=== PATIENT | female | born 1950 | race Caucasian/White ===

== ENCOUNTER 2021-06-03 23:33 | Inpatient (IN) | payer MEDICARE, OTHER ==
[~2021-06-03] VITALS: Ht 162.6 cm; Wt 43.2 kg
--- NOTE | 2021-06-03 23:36 | NUR ---
pt bibra c/o sob x few days. Pt aaxo3 breathing evenly, but quickly. pt attached to monitor and pox. Upon assessment pt is incontinent bladder and bowel. Pt has gtube. Pt skin warm and dry. Pt given blanket and call light within reach
--- NOTE | 2021-06-03 23:55 | NUR ---
staci, daughter [phone]. Per daughter, pt has been confused for a week since she left [facility]. Roll Edge Machine Operator believes that it is caused by mismanagement of thyroid meds.
[2021-06-04 00:26] LABS: BASOPHILS # (AUTO) 0.1 K/uL (0.0-0.2); BASOPHILS % (AUTO) 0.8 % (0.0-2.0); EOSINOPHILS % (AUTO) 0.7 % (0.0-6.0); HEMATOCRIT 40 % (33-45); HEMOGLOBIN 12.6 g/dL (11.5-14.8); LYMPHOCYTES # (AUTO) 2.2 K/uL (0.8-4.8); LYMPHOCYTES % (AUTO) 18.4 % (20.0-44.0); MEAN CORPUSCULAR HGB CONC 31 g/dl (31.0-36.0); MEAN CORPUSCULAR VOLUME 91 fL (82-100); MONOCYTES # (AUTO) 1.1 K/uL (0.1-1.30); MONOCYTES % (AUTO) 9.4 % (2.0-12.0); NEUTROPHILS # (AUTO) 8.6 K/uL (1.8-8.9); NEUTROPHILS % (AUTO) 70.7 % (43.0-81.0); PLATELET COUNT (AUTO) 273 K/uL (150-450); RED BLOOD CELL COUNT(AUTO) 4.43 MIL/uL (4.0-5.2); WHITE BLOOD COUNT (AUTO) 12.1 K/uL (4.3-11.0)
[2021-06-04 01:05] LABS: ALANINE AMINOTRANSFERASE 29 U/L (12-78); ALBUMIN 3.1 g/dL (3.4-5.0); ALKALINE PHOSPHATASE 101 U/L (46-116); ASPARTATE AMINOTRANSFERASE 24 U/L (15-37); BILIRUBIN,DIRECT 0.4 mg/dL (0.0-0.2); BILIRUBIN,TOTAL 0.8 mg/dL (0.2-1.0); CALCIUM, SERUM 8.7 mg/dL (8.5-10.1); CARBON DIOXIDE 33 mmol/L (21-32); CHLORIDE 99 mmol/L (98-107); CREATININE 0.9 mg/dL (0.6-1.3); GLUCOSE 120 mg/dL (74-106); SODIUM SERUM 141 mmol/L (136-145); TOTAL PROTEIN, SERUM 7.6 g/dL (6.4-8.2); UREA NITROGEN, BLOOD 17 mg/dL (7-18)
[2021-06-04 01:09] LABS: POTASSIUM 2.8 mmol/L (3.5-5.1)
[2021-06-04] MEDS ORDERED: CEFTRIAXONE 1GM BAG (ER ONLY) 1 GM/50 ML PIGGYBACK IV ONE (01:30)
[2021-06-04] MEDS ORDERED: AZITHROMYCIN 500 MG in IV D5W 250 ML IV ONE (01:30)
[2021-06-04] MEDS ORDERED: CEFTRIAXONE 1 G VIAL ONE (01:41)
[2021-06-04] MEDS ORDERED: MAGNESIUM HYDROXIDE 30 ML UDC PO PRN (02:00)
[2021-06-04] MEDS ORDERED: ACETAMINOPHEN 325 MG TABLET PO PRN (02:00)
[2021-06-04] MEDS ORDERED: POTASSIUM CHLORIDE 20 MEQ TAB.PRT.SR PO ONE ×4 (02:00→03:02)
[2021-06-04] MEDS ORDERED: Z GUARD REMEDY 2 OZ OINT TP PRN (02:00)
[2021-06-04] MEDS ORDERED: ZOLPIDEM TARTRATE 5 MG TABLET PO PRN (02:00)
[2021-06-04] MEDS ORDERED: FUROSEMIDE 20 MG/2 ML VIAL IV ONE (02:00)
[2021-06-04] MEDS ORDERED: ONDANSETRON HCL/PF 4 MG/2 ML VIAL IVP PRN (02:00)
--- NOTE | 2021-06-04 02:00 | NUR ---
K Cassandra not given, 60MEQ of K Cassandra already given at this time.
--- NOTE | 2021-06-04 02:05 | NUR ---
called zupervisor for azithromycin
[2021-06-04] MEDS ORDERED: AZITHROMYCIN 500 MG VIAL ONE (02:59)
--- NOTE | 2021-06-04 03:15 | NUR ---
Patient is resting comfortably in bed with eyes closed. Easily aroused. VSS
[2021-06-04] MEDS ORDERED: POTASSIUM CHLORIDE 20 MEQ POWDER PACKET ONE (03:22)
--- NOTE | 2021-06-04 04:15 | NUR ---
PATIENT IS CLEANED, PROVIDED WITH PERICARE. CHANGED INTO CLEAN SHEET AND GOWN.
[2021-06-04 05:58] LABS: BASOPHILS # (AUTO) 0.1 K/uL (0.0-0.2); BASOPHILS % (AUTO) 0.5 % (0.0-2.0); EOSINOPHILS % (AUTO) 0.7 % (0.0-6.0); HEMATOCRIT 39 % (33-45); HEMOGLOBIN 12.1 g/dL (11.5-14.8); LYMPHOCYTES # (AUTO) 2.4 K/uL (0.8-4.8); LYMPHOCYTES % (AUTO) 20.6 % (20.0-44.0); MEAN CORPUSCULAR HGB CONC 31 g/dl (31.0-36.0); MEAN CORPUSCULAR VOLUME 92 fL (82-100); MONOCYTES # (AUTO) 0.9 K/uL (0.1-1.30); MONOCYTES % (AUTO) 7.9 % (2.0-12.0); NEUTROPHILS # (AUTO) 8.1 K/uL (1.8-8.9); NEUTROPHILS % (AUTO) 70.3 % (43.0-81.0); PLATELET COUNT (AUTO) 250 K/uL (150-450); RED BLOOD CELL COUNT(AUTO) 4.21 MIL/uL (4.0-5.2); WHITE BLOOD COUNT (AUTO) 11.5 K/uL (4.3-11.0)
[2021-06-04 06:19] LABS: CALCIUM, SERUM 8.7 mg/dL (8.5-10.1); CREATININE 1.1 mg/dL (0.6-1.3); MAGNESIUM 1.8 mg/dL (1.8-2.4); PHOSPHORUS 3.4 mg/dL (2.5-4.9); POTASSIUM 4.2 mmol/L (3.5-5.1)
[2021-06-04] MEDS ORDERED: LOSA25TA27 PO (07:51)
[2021-06-04] MEDS ORDERED: CARV3.122 PO (07:51)
[2021-06-04] MEDS ORDERED: AMIO100T4 PO (07:51)
[2021-06-04] MEDS ORDERED: ESCI20TA PO (07:51)
[2021-06-04] MEDS ORDERED: EZET10TA32 PO (07:51)
[2021-06-04] MEDS ORDERED: LORA2TAB95 PO (07:51)
[2021-06-04] MEDS ORDERED: LEVO88TA5 PO (07:51)
[2021-06-04] MEDS ORDERED: SPIR25TA6 PO (08:35)
[2021-06-04] MEDS ORDERED: PRAS10TA5 PO (08:35)
[2021-06-04] MEDS ORDERED: ALBU8.5H8 IH (08:35)
[2021-06-04] MEDS ORDERED: FURO-145 PO (08:35)
[2021-06-04] MEDS ORDERED: METH2.5T PO (08:35)
[2021-06-04] MEDS ORDERED: MAGN500C16 PO (08:35)
[2021-06-04] MEDS ORDERED: FLUT10.62 IH (08:35)
[2021-06-04] MEDS ORDERED: POTA-10 PO (08:35)
[2021-06-04] MEDS ORDERED: ERGO500040 PO (08:35)
[2021-06-04] MEDS ORDERED: ASCO500C17 PO (08:35)
[2021-06-04] MEDS ORDERED: FURO-144 PO (08:35)
[2021-06-04] MEDS ORDERED: LEUC5TAB PO (08:35)
[2021-06-04] MEDS ORDERED: FOLI0.4T6 PO (08:35)
[2021-06-04] MEDS ORDERED: ENOXAPARIN SODIUM 40 MG/0.4 ML DISP.SYRIN SQ SCH (09:00)
--- NOTE | 2021-06-04 09:02 | NUR ---
PRELIMINARY ECHO SHOWED EF 20-25%~. ADVISED RN
--- NOTE | 2021-06-04 09:38 | NUR ---
patient resting in [facility] awaiting for admit bed vital stable denies pain, no acute resp distress, no sob no cp.
[2021-06-04] MEDS ORDERED: ENOXAPARIN SODIUM 40 MG/0.4 ML DISP.SYRIN SQ ONE (09:40)
--- NOTE | 2021-06-04 10:41 | NUR ---
patient stable for transfer to unit report given to nurse Zane all questions answered.
--- NOTE | 2021-06-04 11:20 | NUR ---
RN NOTE PATIENT TRANSFERRED FROM ER, PATIENT ON O2 VIA NC @ 4 LPM O2 SAT OF 97%, ON TELE MONITOR HR OF 81, WITH HX OF BUNDLE BRANCH BLOCK, VIA GURTEOFILO UNDER THE CARE OF DR. BARR, ORDERS NOTED AND CARRIED OUT. WILL CONTINUE TO MONITOR PATIENT.
[2021-06-04] MEDS ORDERED: LEUCOVORIN CALCIUM 5 MG TABLET PO SCH (12:30)
[2021-06-04] MEDS: FUROSEMIDE 40 MG/4 ML VIAL IV SCH (12:46)
[2021-06-04] MEDS: methylPREDNISolone SOD SUCC 125 MG/2ML VIAL IV SCH ×2 (13:25→21:55)
[2021-06-04 13:36] VITALS: BP 127/71
[2021-06-04] MEDS: ALBUTEROL FS 2.5 MG/3 ML VIAL.NEB NEB SCH ×3 (15:13→22:40)
[2021-06-04 16:00] VITALS: BP 98/59
[2021-06-04] MEDS ORDERED: PRASUGREL HCL 5 MG TABLET PO SCH ×2 (17:00→20:30)
[2021-06-04] MEDS: CARVEDILOL 3.125 MG TABLET PO SCH (17:00)
[2021-06-04] MEDS: LOSARTAN POTASSIUM 25 MG TABLET PO SCH (17:10)
--- NOTE | 2021-06-04 18:57 | NUR ---
RN NOTE PATIENT OBSERVED ON BED AWAKE, ALERT AND ORIENTED X3, ABLE TO VERBALIZE NEEDS, BREATHING EVEN AND UNLABORED, ON O2 VIA NC @ 3LPM O2 SAT OF 99%, ON TELE MONITOR WITH SR OF 74 BBB NOTED, SACRAL AND PERINEUM REDNESS NOTED AND DOCUMENTED, WITH RIGHT ARM G20 PATENT FLUSHING WELL, PATIENT ON EFFIENT NOT AD MINISTERED PHARMACY DOES NOT STOCK, MADE AWARE, FAMILY CONTACTED TO BRING HOME MEDICATION LARRY CALLED, NOTIFIED MD FOR HS GT FEEDING, NO ORDER AT THIS TIME, WILL ENDORSE TO NOC SHIFT, SAFETY MEASURE OBSERVED, CALL LIGHT WITHIN REACH, BED WHEELS LOCK, WILL CONTINUE TO MONITOR,.
[2021-06-04 20:00] VITALS: BP 113/70
[2021-06-04] MEDS: LORAZEPAM 1 MG TABLET PO SCH (21:00)
[2021-06-04] MEDS: ESCITALOPRAM OXALATE (10 MG) 10 MG TABLET PO SCH (21:54)
[2021-06-04] MEDS: POTASSIUM CHLORIDE 10 MEQ TABLET.SA PO SCH (21:57)
[2021-06-04] MEDS ORDERED: PRASUGREL HCL 5 MG TABLET PO ONE (22:00)
[2021-06-05] VITALS: BP 114/66
[2021-06-05] MEDS: ALBUTEROL FS 2.5 MG/3 ML VIAL.NEB NEB SCH ×6 (03:30→22:55)
[2021-06-05 04:00] VITALS: BP 113/68
--- NOTE | 2021-06-05 04:01 | NUR ---
RN notes Patient in bed resting comfortably, awake watching TV. Alert and oriented. Able to verbally communicate needs. No distress noted. Breathing even and unlabored. On 4lpm O2 via nasal cannula tolerating well. No complaint of pain or discomfort. Effient 10mg was brought by family as suggested by pharmacy since they do not have a supply. Since pharmacy was already close, Called Dr. Messina to get an order to give the medication that came from the family x 1. MD agreed and made an order. Vital signs wnl. No significant change of condition. Kept clean and dry. Will endorse to next shift for continuity of care.
[2021-06-05] MEDS: methylPREDNISolone SOD SUCC 125 MG/2ML VIAL IV SCH ×3 (05:17→20:36)
[2021-06-05] MEDS ORDERED: JEVITY 1.2 CAL 1,000 ML BOTTLE NG PRN (06:30)
[2021-06-05 08:00] VITALS: BP 117/69
--- NOTE | 2021-06-05 08:54 | NUR ---
RN NOTE PATIENT SEEN BY DR. MOMO MD ORDERED, EFFIENT 10MG Q5PM, BROUGHT PATIENT MEDICATION TO PHARMACY ORDERED FOR LABEL.
[2021-06-05] MEDS ORDERED: LEVOTHYROXINE SODIUM 88 MCG TABLET PO SCH (09:00)
[2021-06-05] MEDS: MAGNESIUM OXIDE 400 MG TABLET PO SCH (09:29)
[2021-06-05] MEDS: CARVEDILOL 3.125 MG TABLET PO SCH ×2 (09:29→17:22)
[2021-06-05] MEDS: LORAZEPAM 1 MG TABLET PO SCH ×2 (09:29→20:53)
[2021-06-05] MEDS: SPIRONOLACTONE 25 MG TABLET PO SCH (09:29)
[2021-06-05] MEDS: LEVOTHYROXINE SODIUM 75 MCG TABLET PO SCH (09:30)
[2021-06-05] MEDS: FUROSEMIDE 40 MG/4 ML VIAL IV SCH (10:39)
[2021-06-05 12:00] VITALS: BP 110/77
[2021-06-05] MEDS: ENSURE ENLIVE CHOC 237 ML CAN PO SCH ×2 (12:34→17:20)
[2021-06-05] MEDS ORDERED: AZITHROMYCIN 250 MG TABLET PO ONE (14:30)
[2021-06-05] MEDS: CEFTRIAXONE 1 G in IV D5W 50 ML IV SCH (14:41)
[2021-06-05 15:04] LABS: CALCIUM, SERUM 9.5 mg/dL (8.5-10.1); CREATININE 1.3 mg/dL (0.6-1.3); POTASSIUM 4.9 mmol/L (3.5-5.1)
[2021-06-05] MEDS: IPRATROPIUM NEB FS 0.5 MG/2.5 ML AMPUL.NEB NEB SCH ×2 (15:39→19:14)
[2021-06-05 16:00] VITALS: BP 120/73
[2021-06-05] MEDS: PROSOURCE / PROSTAT (PYXIS) 30 ML UDC PO SCH (17:19)
[2021-06-05] MEDS: HOME MED MISCELLANEOUS PO SCH (17:22)
[2021-06-05] MEDS: LOSARTAN POTASSIUM 25 MG TABLET PO SCH (17:22)
--- NOTE | 2021-06-05 18:37 | NUR ---
RN NOTE PATIENT OBSERVED ON BED AWAKE, ALERT AND ORIENTED X3, ABLE TO VERBALIZE NEEDS, BREATHING EVEN AND UNLABORED, ON O2 VIA NC @ 3LPM O2 SAT OF 99%, ON TELE MONITOR WITH SR OF 61 WITH BBB NOTED, LEFT ARM IV PATENT FLUSHING WELL, PATIENT ON GT FEEDING TOLERATING WELL, JEVITY 1.2 @30CC/HR, NO RESIDUAL NOTED, PATIENT MRSA OF THE NARES DR. BARR NOTIFIED, ORDERED BACTROBAN BOTH NARES BID X5 DAYS. SAFETY MEASURE OBSERVED, CALL LIGHT WITHIN REACH, BED WHEELS LOCK, WILL CONTINUE TO MONITOR. WILL ENDORSE TO NOC SHIFT.
--- NOTE | 2021-06-05 18:48 | NUR ---
RN NOTE PATIENT SEEN BY DR. SARINA MD ORDERED PT/OT EVALUATION, ORDERS NOTED AND CARRIED OUT.
[2021-06-05 20:00] VITALS: BP 120/88
--- NOTE | 2021-06-05 20:00 | NUR ---
LANDEN/GALLEY STRIPPER RECIEVED REPORT FROM DAY NURSE. SEE FLOWSHEET FOR ASSESSMENT, ALSO FOR SKIN ISSUES THAT PT MAY HAVE WHICH ARE ADDRESSED HERE ALONG WITH THE INTERVENTIONS FOR EACH. CCALL LIGHT WITHIN REACH
[2021-06-05] MEDS: DOXYCYCLINE HYCLATE (100 MG) 100 MG TABLET PO SCH (20:52)
[2021-06-05] MEDS: MUPIROCIN OINT 2% 22 GM TUBE NS SCH (20:52)
[2021-06-05] MEDS: POTASSIUM CHLORIDE 10 MEQ TABLET.SA PO SCH (20:53)
[2021-06-05] MEDS: ESCITALOPRAM OXALATE (10 MG) 10 MG TABLET PO SCH (20:53)
[2021-06-06] VITALS: BP_SYST 115; BP_SYST 90; BP_DIAS 47; BP_DIAS 81
[2021-06-06] MEDS: ALBUTEROL FS 2.5 MG/3 ML VIAL.NEB NEB SCH ×3 (02:30→11:06)
[2021-06-06] MEDS: IPRATROPIUM NEB FS 0.5 MG/2.5 ML AMPUL.NEB NEB SCH ×2 (02:30→07:35)
[2021-06-06 04:00] VITALS: BP 91/40
[2021-06-06] MEDS: methylPREDNISolone SOD SUCC 125 MG/2ML VIAL IV SCH ×3 (05:05→21:47)
[2021-06-06] MEDS: LEVOTHYROXINE SODIUM 75 MCG TABLET PO SCH (05:06)
--- NOTE | 2021-06-06 07:15 | NUR ---
RN NOTE PATIENT OBSERVED ON BED AWAKE, ALERT AND ORIENTED X3, ABLE TO VERBALIZE NEEDS, BREATHING EVEN AND UNLABORED, ON O2 VIA NC @ 3LPM O2 SAT OF 99%, ON TELE MONITOR WITH SR OF 74 WITH BBB NOTED, RIGHT ARM G22 PATENT FLUSHING WELL, PATIENT ON GT FEEDING TOLERATING WELL, JEVITY 1.2 @30CC/HR, NO RESIDUAL NOTED, SAFETY MEASURE OBSERVED, CALL LIGHT WITHIN REACH, BED WHEELS LOCK, WILL CONTINUE TO MONITOR.
[2021-06-06 07:43] LABS: MAGNESIUM 2.1 mg/dL (1.8-2.4); PHOSPHORUS 3.2 mg/dL (2.5-4.9)
[2021-06-06 08:00] VITALS: BP 112/73
[2021-06-06] MEDS: ENSURE ENLIVE CHOC 237 ML CAN PO SCH ×3 (08:00→16:20)
--- NOTE | 2021-06-06 08:26 | NUR ---
RT HHN tx not given due to pending PCR COVID results because of risk risk of aerosolization. Addendum: 06/06/21 at 0830 by VICTORINO HASSAN RT Amended: Links added.
[2021-06-06 08:27] LABS: BASOPHILS % (AUTO) 0.1 % (0.0-2.0); HEMATOCRIT 35 % (33-45); HEMOGLOBIN 11.2 g/dL (11.5-14.8); LYMPHOCYTES # (AUTO) 0.6 K/uL (0.8-4.8); LYMPHOCYTES % (AUTO) 6.1 % (20.0-44.0); MEAN CORPUSCULAR HGB CONC 32 g/dl (31.0-36.0); MEAN CORPUSCULAR VOLUME 92 fL (82-100); MONOCYTES # (AUTO) 0.5 K/uL (0.1-1.30); MONOCYTES % (AUTO) 4.6 % (2.0-12.0); NEUTROPHILS # (AUTO) 9.6 K/uL (1.8-8.9); NEUTROPHILS % (AUTO) 89.2 % (43.0-81.0); PLATELET COUNT (AUTO) 188 K/uL (150-450); WHITE BLOOD COUNT (AUTO) 10.7 K/uL (4.3-11.0)
[2021-06-06] MEDS ORDERED: AZITHROMYCIN 250 MG TABLET PO SCH (09:00)
[2021-06-06] MEDS: MAGNESIUM OXIDE 400 MG TABLET PO SCH (09:51)
[2021-06-06] MEDS: DOXYCYCLINE HYCLATE (100 MG) 100 MG TABLET PO SCH ×2 (09:51→21:47)
[2021-06-06] MEDS: SPIRONOLACTONE 25 MG TABLET PO SCH (09:52)
[2021-06-06] MEDS: CARVEDILOL 3.125 MG TABLET PO SCH ×2 (09:52→16:19)
[2021-06-06] MEDS: PROSOURCE / PROSTAT (PYXIS) 30 ML UDC PO SCH ×2 (09:52→16:20)
[2021-06-06] MEDS: LORAZEPAM 1 MG TABLET PO SCH ×2 (09:52→21:47)
[2021-06-06] MEDS: MUPIROCIN OINT 2% 22 GM TUBE NS SCH ×2 (10:02→21:00)
[2021-06-06] MEDS: FUROSEMIDE 40 MG/4 ML VIAL IV SCH (10:28)
[2021-06-06 12:00] VITALS: BP 123/70
[2021-06-06] MEDS ORDERED: AMIODARONE HCL 200 MG TABLET PO SCH (12:00)
[2021-06-06] MEDS: CEFTRIAXONE 1 G in IV D5W 50 ML IV SCH (14:13)
[2021-06-06] MEDS: IPRATROPIUM/ALBUTEROL INHALER IH SCH ×3 (15:45→20:50)
[2021-06-06 16:00] VITALS: BP 114/72
[2021-06-06] MEDS: HOME MED MISCELLANEOUS PO SCH (16:20)
[2021-06-06] MEDS: LOSARTAN POTASSIUM 25 MG TABLET PO SCH (17:20)
--- NOTE | 2021-06-06 18:51 | NUR ---
RN NOTE PATIENT OBSERVED ON BED AWAKE, ALERT AND ORIENTED X3, ABLE TO VERBALIZE NEEDS, BREATHING EVEN AND UNLABORED, ON O2 VIA NC @ 3LPM O2 SAT OF 99%, ON TELE MONITOR WITH SR OF 74 WITH BBB NOTED, RIGHT ARM G20 PATENT FLUSHING WELL, PATIENT ON GT FEEDING TOLERATING WELL, JEVITY 1.2 @30CC/HR, NO RESIDUAL NOTED, SAFETY MEASURE OBSERVED, CALL LIGHT WITHIN REACH, BED WHEELS LOCK, WILL CONTINUE TO MONITOR. WILL ENDORSE TO NOC SHIFT.
[2021-06-06 20:00] VITALS: BP 90/51
--- NOTE | 2021-06-06 20:05 | NUR ---
TELEVISION PROGRAM DIRECTOR OPENING NOTE PATIENT A/OX3; ABLE TO MAKE NEEDS KNOWN. ON O2 2LPM VIA NC; TOLERATING SETTINGS WELL WITH NO SOB. EXTERNAL TAPE MAKING MACHINE OPERATOR READS SR WITH BBB AT 93. NO S/SX OF PAIN OR DISCOMFORT. GT PEG PATENT AND INTACT; JEVITY 1.2 @ 30M/HR; TOLERATING FEEDINGS WELL. R HAND #22G; PATENT AND INTACT. ALL NEEDS MET AT THIS TIME. PATIENT SAFETY MEASURES IN PLACE: BED IN LOWEST LOCKED POSITION, SIDE RAILS UPX2, CALL LIGHT WITHIN EASY REACH, BED ALARMS ON. PATIENT IN STABLE CONDITION, WILL CONTINUE PLAN OF CARE
[2021-06-06] MEDS: POTASSIUM CHLORIDE 10 MEQ TABLET.SA PO SCH (21:47)
[2021-06-06] MEDS: ESCITALOPRAM OXALATE (10 MG) 10 MG TABLET PO SCH (21:47)
[2021-06-06] MEDS ORDERED: ALBUTEROL FS 2.5 MG/0.5 ML VIAL.NEB NEB PRN (23:00)
[2021-06-07] VITALS: BP 115/81
[2021-06-07] MEDS: IPRATROPIUM/ALBUTEROL INHALER IH SCH ×6 (01:30→11:16)
[2021-06-07 04:00] VITALS: BP 110/74
[2021-06-07] MEDS: methylPREDNISolone SOD SUCC 125 MG/2ML VIAL IV SCH ×2 (06:15→12:47)
[2021-06-07 06:39] LABS: BASOPHILS % (AUTO) 0.2 % (0.0-2.0); HEMATOCRIT 35 % (33-45); HEMOGLOBIN 11.3 g/dL (11.5-14.8); LYMPHOCYTES # (AUTO) 0.6 K/uL (0.8-4.8); LYMPHOCYTES % (AUTO) 3.9 % (20.0-44.0); MEAN CORPUSCULAR HGB CONC 32 g/dl (31.0-36.0); MEAN CORPUSCULAR VOLUME 92 fL (82-100); MONOCYTES # (AUTO) 0.6 K/uL (0.1-1.30); MONOCYTES % (AUTO) 3.5 % (2.0-12.0); NEUTROPHILS # (AUTO) 14.7 K/uL (1.8-8.9); NEUTROPHILS % (AUTO) 92.4 % (43.0-81.0); PLATELET COUNT (AUTO) 226 K/uL (150-450); RED BLOOD CELL COUNT(AUTO) 3.86 MIL/uL (4.0-5.2); WHITE BLOOD COUNT (AUTO) 15.9 K/uL (4.3-11.0)
[2021-06-07 07:03] LABS: CALCIUM, SERUM 9.1 mg/dL (8.5-10.1); CREATININE 0.9 mg/dL (0.6-1.3); POTASSIUM 5.3 mmol/L (3.5-5.1)
--- NOTE | 2021-06-07 07:29 | NUR ---
ASSOCIATE TEAM PHYSICIAN CLOSING NOTE PATIENT A/OX3; ABLE TO MAKE NEEDS KNOWN. ON O2 2LPM VIA NC; TOLERATING SETTINGS WELL WITH NO SOB. EXTERNAL CHOREOGRAPHY DIRECTOR READS SR WITH BBB AT 80'S. NO S/SX OF PAIN OR DISCOMFORT. GT PEG PATENT AND INTACT; JEVITY 1.2 @ 30M/HR; TOLERATING FEEDINGS WELL. R HAND #22G; PATENT AND INTACT. ALL NEEDS MET AT THIS TIME. PATIENT SAFETY MEASURES IN PLACE: BED IN LOWEST LOCKED POSITION, SIDE RAILS UPX2, CALL LIGHT WITHIN EASY REACH, BED ALARMS ON. PATIENT IN STABLE CONDITION, ENDORSED PLAN OF CARE TO ONCOMING MORNING RN.
--- NOTE | 2021-06-07 07:30 | NUR ---
RN OPENING NOTES Patient is alert and oriented. On 2 lpm o2 via n/c with 02 sat of 98%. No c/o pain or discomfort. Will continue to monitor. Call light with in reach.
[2021-06-07 08:00] VITALS: BP 110/74
[2021-06-07] MEDS: ENSURE ENLIVE CHOC 237 ML CAN PO SCH ×3 (08:00→17:00)
[2021-06-07] MEDS ORDERED: FUROSEMIDE 40 MG TABLET PO SCH (09:00)
[2021-06-07] MEDS: DOXYCYCLINE HYCLATE (100 MG) 100 MG TABLET PO SCH (09:23)
[2021-06-07] MEDS: MAGNESIUM OXIDE 400 MG TABLET PO SCH (09:24)
[2021-06-07] MEDS: LEVOTHYROXINE SODIUM 75 MCG TABLET PO SCH (09:24)
[2021-06-07] MEDS: CARVEDILOL 3.125 MG TABLET PO SCH ×2 (09:24→17:00)
[2021-06-07] MEDS: SPIRONOLACTONE 25 MG TABLET PO SCH (09:24)
[2021-06-07] MEDS: LORAZEPAM 1 MG TABLET PO SCH (09:24)
[2021-06-07] MEDS: MUPIROCIN OINT 2% 22 GM TUBE NS SCH (09:25)
[2021-06-07] MEDS: PROSOURCE / PROSTAT (PYXIS) 30 ML UDC PO SCH (09:25)
[2021-06-07] MEDS ORDERED: JEVITY 1.2 CAL 1,000 ML BOTTLE PEG PRN (09:30)
[2021-06-07] MEDS ORDERED: INSULIN REGULAR, HUMAN 100 UNIT/ML 3 ML VIAL IV ONE (10:00)
[2021-06-07] MEDS ORDERED: DEXTROSE 50%-WATER 50 ML DISP.SYRIN IVP ONE (10:00)
--- NOTE | 2021-06-07 10:50 | NUR ---
Patient given 10 units of insulin along with dextrose for K level per FLOWER MACHINE OPERATOR Petra's orders. Julio Cesar well.
[2021-06-07] MEDS ORDERED: IPRATROPIUM NEB FS 0.5 MG/2.5 ML AMPUL.NEB NEB SCH (15:30)
[2021-06-07] MEDS ORDERED: ALBUTEROL HALF STRENGTH 1.25 MG/3 ML VIAL.NEB NEB SCH (15:30)
[2021-06-07] MEDS: CEFTRIAXONE 1 G in IV D5W 50 ML IV SCH (15:47)
[2021-06-07 16:00] VITALS: BP 98/64
[2021-06-07] MEDS ORDERED: AZIT250T13 PO (16:12)
[2021-06-07] MEDS ORDERED: MUPI22OI7 NS (16:12)
[2021-06-07] MEDS ORDERED: Prosource PO (16:12)
[2021-06-07] MEDS ORDERED: methylPREDNISolone SOD SUCC IV ×2 (16:12→16:24)
[2021-06-07] MEDS ORDERED: LACT-54 PO (16:12)
[2021-06-07] MEDS ORDERED: MAGN400O6 PO (16:12)
[2021-06-07] MEDS ORDERED: LACT-209 PEG (16:12)
[2021-06-07] MEDS ORDERED: FURO40TA5 PO (16:12)
[2021-06-07] MEDS ORDERED: IPRA0.2S9 NEB (16:12)
--- NOTE | 2021-06-07 17:30 | NUR ---
Patient discharged to [facility]. report called in to [facility] patient left the facility in good stable condition.
== END 2021-06-07 17:57 | DRG 291 ==
LOC: ER 23:43 → TRANSITION 06-04 07:01 → TELE1 06-04 10:41 → MEDSG1 06-07 08:52
PROVIDERS: ADMIT Nurse Practitioner Acute Care; ATTEND Registered Nurse
DX: I11.0 Hypertensive heart disease with heart failure (principal); J96.01 Acute respiratory failure with hypoxia; E43 Unspecified severe protein-calorie malnutrition; N17.0 Acute kidney failure with tubular necrosis; J44.1 Chronic obstructive pulmonary disease with (acute) exacerbation; E87.1 Hypo-osmolality and hyponatremia; R64 Cachexia; I50.43 Acute on chronic combined systolic (congestive) and diastolic (congestive) heart failure; I42.9 Cardiomyopathy, unspecified; Z86.16 Personal history of COVID-19; I25.10 Atherosclerotic heart disease of native coronary artery without angina pectoris; Z20.822 Contact with and (suspected) exposure to COVID-19; Z95.1 Presence of aortocoronary bypass graft; Z87.891 Personal history of nicotine dependence; Z86.711 Personal history of pulmonary embolism; E03.9 Hypothyroidism, unspecified; Z90.49 Acquired absence of other specified parts of digestive tract; Z98.86 Personal history of breast implant removal; Z98.890 Other specified postprocedural states; M06.9 Rheumatoid arthritis, unspecified; F41.9 Anxiety disorder, unspecified; F32.9 Major depressive disorder, single episode, unspecified; E87.6 Hypokalemia; D72.829 Elevated white blood cell count, unspecified; T38.0X5A Adverse effect of glucocorticoids and synthetic analogues, initial encounter; Y92.9 Unspecified place or not applicable; I34.0 Nonrheumatic mitral (valve) insufficiency; I44.7 Left bundle-branch block, unspecified; I48.91 Unspecified atrial fibrillation; R13.10 Dysphagia, unspecified; Z93.1 Gastrostomy status
CPT/HCPCS: 36415; 71045-TC; 80048-TC; 80061-TC; 80076-TC; 82962-TC; 83605-TC; 83735-TC; 83880; 84100-TC; 84484-TC; 85025-TC; 85730-TC; 87040-TC; 87081-TC; 93307-TC; 94799-TC; 97112-TC; 97116-TC; 97530-TC; A6403; C9803; G0378; J0456; J0696; J1650; J1815; J1940; J2405; J2930; J7030; J7050; J7060; U0003

== ENCOUNTER 2021-06-09 22:16 | Inpatient (IN) | payer MEDICARE, OTHER ==
[~2021-06-09] VITALS: Ht 152.4 cm; Wt 53.5 kg
[~2021-06-09 22:16] MED LIST: ALBU8.5H8 IH; AMIO100T4 PO; ASCO500C17 PO; AZIT250T13 PO; CARV3.122 PO; ERGO500040 PO; ESCI20TA PO; FLUT10.62 IH; FOLI0.4T6 PO; FURO40TA5 PO; IPRA0.2S9 NEB; LACT-209 PEG; LACT-54 PO; LEUC5TAB PO; LEVO88TA5 PO; LORA2TAB95 PO; LOSA25TA27 PO; MAGN400O6 PO; MAGN500C16 PO; METH2.5T PO; MUPI22OI7 NS; POTA-10 PO; PRAS10TA5 PO; Prosource PO; SPIR25TA6 PO; methylPREDNISolone SOD SUCC IV
--- NOTE | 2021-06-09 22:18 | NUR ---
PT BIBEMS FROM HOME C/O SOB, O2 SAT 97% ON 3L/N/C. PT ON HOME O2 3L. PLACED IN BED 8 ON REGULATORY AFFAIRS ANALYST AND PULSE OX. ER MD AT BEDSIDE FOR EVAL. AWAITING ORDERS. NO ACUTE DISTRESS NOTED. WILL CONTINUE TO MONITOR.
[2021-06-09] MEDS ORDERED: NITROGLYCERIN 0.4 MG/TAB BOTTLE SL ONE (22:30)
[2021-06-09] MEDS ORDERED: FUROSEMIDE 40 MG/4 ML VIAL IV ONE (22:30)
--- NOTE | 2021-06-09 22:44 | NUR ---
RECEIVED CALL FROM PT DAUGHTER/PAPER SHEETER LARRY, PER PT CORNCOB PIPES ASSEMBLER LISA HAIRSTON MD, REQUESTING TRANSFER TO [facility] TOMORROW DR HAIRSTON : [phone]
[2021-06-09] MEDS ORDERED: NITROGLYCERIN 0.4 MG/TAB BOTTLE ONE (22:46)
[2021-06-09] MEDS ORDERED: FUROSEMIDE 40 MG/4 ML VIAL ONE (22:46)
[2021-06-09 22:47] LABS: BASOPHILS # (AUTO) 0.1 K/uL (0.0-0.2); BASOPHILS % (AUTO) 0.9 % (0.0-2.0); EOSINOPHILS % (AUTO) 0.2 % (0.0-6.0); HEMATOCRIT 41 % (33-45); LYMPHOCYTES # (AUTO) 1.8 K/uL (0.8-4.8); LYMPHOCYTES % (AUTO) 10.1 % (20.0-44.0); MEAN CORPUSCULAR HGB CONC 32 g/dl (31.0-36.0); MEAN CORPUSCULAR VOLUME 91 fL (82-100); MONOCYTES # (AUTO) 1.6 K/uL (0.1-1.30); MONOCYTES % (AUTO) 9.3 % (2.0-12.0); NEUTROPHILS # (AUTO) 13.7 K/uL (1.8-8.9); NEUTROPHILS % (AUTO) 79.5 % (43.0-81.0); PLATELET COUNT (AUTO) 235 K/uL (150-450); RED BLOOD CELL COUNT(AUTO) 4.55 MIL/uL (4.0-5.2); WHITE BLOOD COUNT (AUTO) 17.3 K/uL (4.3-11.0)
[2021-06-09 22:56] LABS: CALCIUM, SERUM 8.9 mg/dL (8.5-10.1); CARBON DIOXIDE 35 mmol/L (21-32); CHLORIDE 95 mmol/L (98-107); CREATININE 0.9 mg/dL (0.6-1.3); GLUCOSE 133 mg/dL (74-106); POTASSIUM 3.8 mmol/L (3.5-5.1); SODIUM SERUM 137 mmol/L (136-145); UREA NITROGEN, BLOOD 44 mg/dL (7-18)
[2021-06-09 23:12] LABS: ALANINE AMINOTRANSFERASE 51 U/L (12-78); ALBUMIN 3.4 g/dL (3.4-5.0); ALKALINE PHOSPHATASE 84 U/L (46-116); ASPARTATE AMINOTRANSFERASE 31 U/L (15-37); BILIRUBIN,DIRECT 0.4 mg/dL (0.0-0.2); BILIRUBIN,TOTAL 0.7 mg/dL (0.2-1.0); TOTAL PROTEIN, SERUM 7.5 g/dL (6.4-8.2)
--- NOTE | 2021-06-09 23:23 | NUR ---
ELIANEID SWABBED, SENT TO LAB.
--- NOTE | 2021-06-10 00:21 | NUR ---
SPOKE TO THE PT'S DAUGHTER REGARDING PLAN OF CARE. VSS.
[2021-06-10] MEDS ORDERED: ESCITALOPRAM OXALATE (10 MG) 10 MG TABLET PO ONE (01:00)
[2021-06-10] MEDS ORDERED: BUDESONIDE RESPULE INH 0.5 MG/2 ML AMPUL.NEB IH PRN (01:30)
[2021-06-10] MEDS ORDERED: ALBUTEROL FS 2.5 MG/3 ML VIAL.NEB NEB PRN (01:30)
[2021-06-10] MEDS ORDERED: ESCITALOPRAM OXALATE (10 MG) 10 MG TABLET ONE ×2 (01:43→01:44)
--- NOTE | 2021-06-10 02:04 | NUR ---
PT CHANGED, PROVIDED WITH PILLOW AND MORE BLANKETS. REMAINS ON FOOD SUPERVISOR AND PULSE OX. PT MADE AWARE THAT HER DAUGHTER IS UPDATED REGARDING PLAN OF CARE.
[2021-06-10] MEDS: IPRATROPIUM NEB FS 0.5 MG/2.5 ML AMPUL.NEB NEB SCH (03:30)
[2021-06-10] MEDS ORDERED: ONDANSETRON HCL/PF 4 MG/2 ML VIAL IVP PRN (06:00)
[2021-06-10] MEDS ORDERED: Z GUARD REMEDY 2 OZ OINT TP PRN (06:00)
[2021-06-10] MEDS ORDERED: POTASSIUM CHLORIDE 20 MEQ TAB.PRT.SR PO ONE ×2 (06:00→06:52)
[2021-06-10] MEDS ORDERED: BUMETANIDE INJ 8 MG in IV NS 0.9% 48 ML IV ONE (06:00)
--- NOTE | 2021-06-10 06:05 | NUR ---
REMAINS ON ON SITE WASTEWATER SYSTEMS TECHNICIAN AND PULSE OX. 3L NC, SAT 99%.
[2021-06-10 06:15] LABS: BASOPHILS # (AUTO) 0.2 K/uL (0.0-0.2); EOSINOPHILS % (AUTO) 0.8 % (0.0-6.0); HEMATOCRIT 41 % (33-45); HEMOGLOBIN 12.9 g/dL (11.5-14.8); LYMPHOCYTES # (AUTO) 1.9 K/uL (0.8-4.8); LYMPHOCYTES % (AUTO) 12.4 % (20.0-44.0); MEAN CORPUSCULAR HGB CONC 31 g/dl (31.0-36.0); MEAN CORPUSCULAR VOLUME 90 fL (82-100); MONOCYTES # (AUTO) 1.3 K/uL (0.1-1.30); MONOCYTES % (AUTO) 8.4 % (2.0-12.0); NEUTROPHILS # (AUTO) 11.8 K/uL (1.8-8.9); NEUTROPHILS % (AUTO) 77.4 % (43.0-81.0); PLATELET COUNT (AUTO) 220 K/uL (150-450); WHITE BLOOD COUNT (AUTO) 15.3 K/uL (4.3-11.0)
[2021-06-10 06:47] LABS: ALBUMIN 3.2 g/dL (3.4-5.0); BILIRUBIN,TOTAL 0.9 mg/dL (0.2-1.0); CALCIUM, SERUM 8.8 mg/dL (8.5-10.1); CREATININE 0.9 mg/dL (0.6-1.3); MAGNESIUM 2.3 mg/dL (1.8-2.4); PHOSPHORUS 3.1 mg/dL (2.5-4.9); POTASSIUM 3.5 mmol/L (3.5-5.1)
--- NOTE | 2021-06-10 06:48 | NUR ---
PT REFUSED ROBERTSON CATHETER. PT CHANGED, ON DOCUMENT MANAGEMENT ANALYST, AND PULSE OX.
[2021-06-10] MEDS ORDERED: ENOXAPARIN SODIUM 40 MG/0.4 ML DISP.SYRIN SQ ONE (06:51)
[2021-06-10] MEDS: ENOXAPARIN SODIUM 40 MG/0.4 ML DISP.SYRIN SQ SCH (07:01)
--- NOTE | 2021-06-10 07:53 | NUR ---
ASSUME PT CARE. PT IS SLEEPING, EASILY AROUSABLE. ON MONITOR. NO DISTRESS NOTED. VITALS UPDATED.
[2021-06-10] MEDS ORDERED: LEVOTHYROXINE SODIUM 50 MCG TABLET ONE (08:27)
[2021-06-10] MEDS ORDERED: LEVOTHYROXINE SODIUM 25 MCG TABLET ONE (08:27)
[2021-06-10] MEDS ORDERED: PANTOPRAZOLE 40 MG TABLET.DR PO ONE (08:29)
[2021-06-10] MEDS ORDERED: AMIODARONE HCL 200 MG TABLET ONE (08:38)
[2021-06-10] MEDS ORDERED: PANTOPRAZOLE 40 MG/PACK PACK ONE (08:39)
[2021-06-10] MEDS ORDERED: CARVEDILOL 3.125 MG TABLET ONE ×2 (08:39→18:18)
[2021-06-10] MEDS ORDERED: SPIRONOLACTONE 25 MG TABLET ONE (08:39)
[2021-06-10] MEDS: SPIRONOLACTONE 25 MG TABLET PO SCH (08:47)
[2021-06-10] MEDS: PANTOPRAZOLE 40 MG TABLET.DR PO SCH (08:47)
[2021-06-10] MEDS: LEVOTHYROXINE SODIUM 75 MCG TABLET PO SCH (08:47)
[2021-06-10] MEDS: ENSURE ENLIVE CHOC 237 ML CAN PO SCH ×3 (08:48→18:25)
[2021-06-10] MEDS: CARVEDILOL 3.125 MG TABLET PO SCH ×2 (08:48→18:25)
[2021-06-10] MEDS: AMIODARONE HCL 200 MG TABLET PO SCH (08:48)
--- NOTE | 2021-06-10 10:29 | NUR ---
RESTING IN BED, STABLE VITALS. SATS 96% ON 3L NC. AM MEDS GIVEN.
--- NOTE | 2021-06-10 12:12 | NUR ---
DAUGHTER KENDALL CALLED, WANTS HOSPITALIST TO GIVE HER A CALL BACK TO UPDATE HER
[2021-06-10 12:23] LABS: LYMPHOCYTES % (MANUAL) 13 % (16-48); MONOCYTES % (MANUAL) 8 % (0-11.0); NEUTROPHILS % (MANUAL) 79 (42-76)
--- NOTE | 2021-06-10 12:31 | NUR ---
THE PATIENT RESTING IN BED COMFORTABLE. VSS
[2021-06-10] MEDS ORDERED: METOLAZONE 2.5 MG TABLET PO ONE (13:30)
[2021-06-10] MEDS ORDERED: METOLAZONE 2.5 MG TABLET ONE (15:04)
[2021-06-10] MEDS ORDERED: FUROSEMIDE 40 MG/4 ML VIAL IV SCH (17:00)
--- NOTE | 2021-06-10 17:19 | NUR ---
PER DAUGHTER LARRY, THE PATIENT ABLE TO TOLERATED FOOD BY MOUTH AND THE GT IS ONLY USED AT NIGHT TIME FOR ADDITIONAL NUTRITION.
--- NOTE | 2021-06-10 17:25 | NUR ---
PER DR RIK FAITH FOR PO INTAKE.
[2021-06-10] MEDS ORDERED: FUROSEMIDE 40 MG TABLET ONE (18:17)
[2021-06-10] MEDS ORDERED: LOSARTAN POTASSIUM 25 MG TABLET ONE (18:18)
[2021-06-10] MEDS: LOSARTAN POTASSIUM 25 MG TABLET PO SCH (18:26)
--- NOTE | 2021-06-10 19:13 | NUR ---
REC'D REPORT FROM TERRANCE VIZCARRA FOR REPORT
--- NOTE | 2021-06-10 20:30 | NUR ---
Patient is resting comfortably in bed with eyes closed. Easily aroused. VSS
--- NOTE | 2021-06-10 21:46 | NUR ---
ATTEMPTED TO GIVE REPORT, RN IN PT ROOM
--- NOTE | 2021-06-10 22:18 | NUR ---
REPORT GIVEN TO TERRANCE STEINER FOR ELLEN
--- NOTE | 2021-06-10 22:30 | NUR ---
Patient arrived from ER via gurney with EMT and RN in stable condition. Denies pain, no distress noted. A&Ox4. VS: 103/65, HR 86, RR 18, Temp 97.5, O2 98% on 3L via NC. Patient denies SOB at this time. Tele monitor applied -rate and rhythm regular. Bowel sounds active x4. Redness to sacrum, mepilex and z guard applied -photo in chart wound care consult ordered. G-tube flushed and patent. Patient is also on cardiac diet and can take food PO. FNS consult input for low body weight and if need to continue G-tube feeding. Patient is incontinent urine yellow and clear. Oriented to unit, bed controls, and remote. All safety measures in place.
[2021-06-10 23:00] VITALS: BP 103/65
[2021-06-11] MEDS: IPRATROPIUM NEB FS 0.5 MG/2.5 ML AMPUL.NEB NEB SCH ×6 (03:30→23:30)
[2021-06-11] MEDS: ENOXAPARIN SODIUM 40 MG/0.4 ML DISP.SYRIN SQ SCH (05:47)
--- NOTE | 2021-06-11 06:21 | NUR ---
FURNACE INSTALLER HELPER CLOSING NOTES Patient has been A&Ox4, slept well after admission though easy to wake. VSS. SR with BBB on monitor. No episodes of SOB overnight, continues on 3L via NC O2 sats around 94%. Incontinent moisture barrier plus mepilex applied. No issues. able to make needs known. Safety measures in place.
[2021-06-11 06:59] LABS: BASOPHILS % (AUTO) 0.3 % (0.0-2.0); EOSINOPHILS % (AUTO) 1.1 % (0.0-6.0); HEMATOCRIT 44 % (33-45); HEMOGLOBIN 14.1 g/dL (11.5-14.8); LYMPHOCYTES % (AUTO) 15.5 % (20.0-44.0); MEAN CORPUSCULAR HGB CONC 32 g/dl (31.0-36.0); MEAN CORPUSCULAR VOLUME 91 fL (82-100); MONOCYTES # (AUTO) 1.1 K/uL (0.1-1.30); MONOCYTES % (AUTO) 8.5 % (2.0-12.0); NEUTROPHILS # (AUTO) 9.6 K/uL (1.8-8.9); NEUTROPHILS % (AUTO) 74.6 % (43.0-81.0); PLATELET COUNT (AUTO) 213 K/uL (150-450); RED BLOOD CELL COUNT(AUTO) 4.87 MIL/uL (4.0-5.2); WHITE BLOOD COUNT (AUTO) 12.9 K/uL (4.3-11.0)
[2021-06-11 07:02] LABS: CALCIUM, SERUM 9.3 mg/dL (8.5-10.1); CREATININE 0.9 mg/dL (0.6-1.3); MAGNESIUM 2.3 mg/dL (1.8-2.4); PHOSPHORUS 2.7 mg/dL (2.5-4.9); POTASSIUM 3.1 mmol/L (3.5-5.1)
--- NOTE | 2021-06-11 07:44 | NUR ---
INSURANCE AGENCY MANAGER OPENING NOTES RECEIVED PATIENT IN BED, ASLEEP. PATIENT ON ROOM AIR; BREATHING EVEN AND UNLABORED, NO SOB PRESENT. TELE MONITOR WITH A CURRENT READING OF SR WITH BBB 82 BPM. NO S/S OF PAIN SUCH FACIAL GRIMACING, MOANING OR GUARDING PRESENT. IV ACCESS ON R HAND G # 22 AND L HAND G # 20. SAFETY PRECAUTIONS IN PLACE; BED IN LOW POSITION AND LOCKED, RAILS UP X2, CALL LIGHT WITHIN REACH. WILL CONTINUE TO MONITOR PATIENT.
[2021-06-11 07:52] VITALS: BP 102/59
[2021-06-11] MEDS: CARVEDILOL 3.125 MG TABLET PO SCH ×2 (08:13→16:25)
[2021-06-11] MEDS: SPIRONOLACTONE 25 MG TABLET PO SCH (08:13)
[2021-06-11] MEDS: AMIODARONE HCL 200 MG TABLET PO SCH (09:00)
[2021-06-11] MEDS: LEVOTHYROXINE SODIUM 75 MCG TABLET PO SCH (09:22)
[2021-06-11] MEDS: POTASSIUM CHLORIDE 20 MEQ TAB.PRT.SR PO SCH (09:22)
[2021-06-11] MEDS: PANTOPRAZOLE 40 MG TABLET.DR PO SCH (09:22)
[2021-06-11] MEDS: ENSURE ENLIVE CHOC 237 ML CAN PO SCH ×3 (09:48→16:25)
[2021-06-11 12:00] VITALS: BP 99/64
[2021-06-11 16:00] VITALS: BP 97/57
[2021-06-11] MEDS: LOSARTAN POTASSIUM 25 MG TABLET PO SCH (18:00)
--- NOTE | 2021-06-11 18:55 | NUR ---
SOAPING DEPARTMENT SUPERVISOR CLOSING NOTES PATIENT REMAINS IN BED, AWAKE, A/O X4. PATIENT ON ROOM AIR; BREATHING EVEN AND UNLABORED, NO SOB PRESENT. NO COMPLAINS OF PAIN DURING THE DAY. IV ACCESS ON R HAND G # 22 AND L HAND G # 20. ALL NEEDS ATTENDED DURING THE DAY. SAFETY PRECAUTIONS IN PLACE; BED IN LOW POSITION AND LOCKED, RAILS UP X2, CALL LIGHT WITHIN REACH. WILL ENDORSE TO PATTERN STORAGE CLERK NURSE.
--- NOTE | 2021-06-11 19:25 | NUR ---
ARCHITECTURAL MODELER OPENING NOTES RECEIVED PT RESTING IN BED, AWAKE, A/O X4, ABLE TO VERBALIZE NEEDS. SHE DENIES ANY PAIN OR DISCOMFORT AT THIS TIME. ON ROOM AIR AND TOLERATING WELL. DENIES SOB. IV ACCESS ON LH #22 AND RH #20 BOTH INTACT, PATENT AND FLUSHES WELL. ON EXTERNAL VIRTUAL ASSISTANT CURRENTLY READING SR 82. PT IN NO ACUTE DISTRESS. SAFETY MEASURES IN PLACE, BED IN LOWEST LOCKED POSITION, S/R UP X2, CALL LIGHT WITHIN EASY REACH. WILL CONTINUE TO MONITOR.
--- NOTE | 2021-06-11 19:26 | NUR ---
RN NOTE G-TUBE IN PLACE AND PATENT, WITH DRESSING C/D/I.
[2021-06-11 20:00] VITALS: BP 95/68
[2021-06-11] MEDS: JEVITY 1.2 CAL 1,000 ML BOTTLE PEG PRN (21:00)
--- NOTE | 2021-06-11 21:18 | NUR ---
RN NOTE SPOKE WITH PT'S DAUGHTER, LARRY, AND UPDATED ON PT'S STATUS, PT HAS BEEN STARTED ON GT FEEDING OF JEVITY 1.2 @40ML/HR.
[2021-06-12] VITALS: BP 96/54
[2021-06-12] MEDS: ACETAMINOPHEN 325 MG TABLET PO PRN ×2 (00:01→21:31)
--- NOTE | 2021-06-12 00:10 | NUR ---
RN NOTE PT C/O MILD PAIN TO LEOPOLDO. ANKLES. GIVEN ACETAMINOPHEN 650 MG PO ORDERED AND REPOSITIONED FOR COMFORT.
--- NOTE | 2021-06-12 02:45 | NUR ---
RN NOTE PT NOTED BP 87/56, PT IS AWAKE/ALERT/VERBAL, DENIES ANY DISTRESS. NOTIFIED WITH ORDER TO GIVE 0.9%NORMAL SALINE BOLUS X1. ORDER NOTED/CARRIED OUT.
[2021-06-12] MEDS ORDERED: IV NS 0.9% 500 ML IV ONE (03:00)
[2021-06-12] MEDS: IPRATROPIUM NEB FS 0.5 MG/2.5 ML AMPUL.NEB NEB SCH ×6 (03:06→23:30)
--- NOTE | 2021-06-12 03:15 | NUR ---
RN NOTE BP 96/58. PT EASILY AWAKENS TO STIMULI, ABLE TO VERBALIZE NEEDS. NO ACUTE DISTRESS NOTED. WILL CONTINUE TO MONITOR.
[2021-06-12 04:00] VITALS: BP 98/58
[2021-06-12] MEDS: ENOXAPARIN SODIUM 40 MG/0.4 ML DISP.SYRIN SQ SCH (05:28)
--- NOTE | 2021-06-12 06:39 | NUR ---
AUTOMOTIVE PAINTER HELPER CLOSING NOTES PT RESTING IN BED, EASILY AWAKENS TO STIMULI, A/O X4. DENIES ANY PAIN OR DISCOMFORT AT THIS TIME. RESPIRATIONS EVEN AND UNLABORED. IV ACCESS ON RH #20 INTACT, PATENT AND FLUSHES WELL. ON EXTERNAL JEWEL FLAT SURFACER CURRENTLY READING SR, HR 74 . PT IN NO ACUTE DISTRESS. SAFETY MEASURES IN PLACE, BED IN LOWEST LOCKED POSITION, S/R UP X2, CALL LIGHT WITHIN EASY REACH.
--- NOTE | 2021-06-12 07:42 | NUR ---
GLOBAL ANALYTICS HEAD OPENING NOTES RECEIVED PATIENT ASLEEP IN BED, EASY TO AROUSE. ALERT AND ORIENTED X. NO SIGNS OR SYMPTOMS OF DISTRESS NOTED. NO SOB. NO COMPLAINTS OF PAIN AT THIS TIME. ABLE TO MAKE NEEDS KNOWN. PATIENT TOLERATING WELL ON ROOM AIR. IV ACCESS RHAND#20 AND LHAND#22 PATENT, INTACT AND FLUSHING WELL. SAFETY MEASURES IN PLACE WITH BED AT LOW POSITION, SIDE RAILS UP X2. CALL LIGHT IS WITHIN REACH. WILL CONTINUE TO MONITOR PATIENT THROUGHOUT SHIFT.
[2021-06-12 08:00] VITALS: BP 100/48
[2021-06-12] MEDS: PANTOPRAZOLE 40 MG TABLET.DR PO SCH (08:25)
[2021-06-12] MEDS: LEVOTHYROXINE SODIUM 75 MCG TABLET PO SCH (08:25)
[2021-06-12] MEDS: ENSURE ENLIVE CHOC 237 ML CAN PO SCH ×3 (08:46→17:00)
[2021-06-12] MEDS: AMIODARONE HCL 200 MG TABLET PO SCH (08:51)
[2021-06-12] MEDS: POTASSIUM CHLORIDE 20 MEQ TAB.PRT.SR PO SCH (08:51)
[2021-06-12] MEDS: CARVEDILOL 3.125 MG TABLET PO SCH ×2 (08:51→17:00)
[2021-06-12] MEDS: SPIRONOLACTONE 25 MG TABLET PO SCH (08:52)
[2021-06-12 09:37] LABS: BASOPHILS % (AUTO) 0.4 % (0.0-2.0); EOSINOPHILS % (AUTO) 1.3 % (0.0-6.0); HEMATOCRIT 41 % (33-45); HEMOGLOBIN 13.4 g/dL (11.5-14.8); LYMPHOCYTES # (AUTO) 2.5 K/uL (0.8-4.8); LYMPHOCYTES % (AUTO) 21.7 % (20.0-44.0); MEAN CORPUSCULAR HGB CONC 33 g/dl (31.0-36.0); MEAN CORPUSCULAR VOLUME 90 fL (82-100); MONOCYTES # (AUTO) 1.1 K/uL (0.1-1.30); MONOCYTES % (AUTO) 9.5 % (2.0-12.0); NEUTROPHILS # (AUTO) 7.7 K/uL (1.8-8.9); NEUTROPHILS % (AUTO) 67.1 % (43.0-81.0); PLATELET COUNT (AUTO) 246 K/uL (150-450); RED BLOOD CELL COUNT(AUTO) 4.58 MIL/uL (4.0-5.2); WHITE BLOOD COUNT (AUTO) 11.4 K/uL (4.3-11.0)
[2021-06-12 10:12] LABS: CALCIUM, SERUM 8.9 mg/dL (8.5-10.1); CREATININE 0.9 mg/dL (0.6-1.3); MAGNESIUM 2.4 mg/dL (1.8-2.4); PHOSPHORUS 3.5 mg/dL (2.5-4.9); POTASSIUM 3.2 mmol/L (3.5-5.1)
[2021-06-12] MEDS ORDERED: LORAZEPAM 0.5 MG TABLET PO ONE (12:00)
--- NOTE | 2021-06-12 14:00 | NUR ---
OPERATIONS RECRUITER NOTES PER DAUGHTER AND PATIENT, THEY DO NOT WANT PATIENT TO BE TRANSFERRED TO [facility] AND WOULD LIKE TO CONTINUE CARE AND TX HERE AT [facility]. LIV LOCKWOOD NP MADE AWARE AND [place] CHARGE NURSE MADE AWARE.
[2021-06-12 16:00] VITALS: BP 111/69
[2021-06-12] MEDS: LOSARTAN POTASSIUM 25 MG TABLET PO SCH (18:00)
--- NOTE | 2021-06-12 19:00 | NUR ---
AUTO BODY REPAIR TEACHER CLOSING NOTES PATIENT IS AWAKE IN BED, RESTING. ALERT AND ORIENTED X 4, FORGETFUL. NO SIGNS OR SYMPTOMS OF DISTRESS NOTED. NO SOB. NO COMPLAINTS OF PAIN AT THIS TIME. VERY DEMANDING REQUESTS FOR FOOD. PATIENT TOLERATING WELL ON ROOM AIR. IV ACCESS RHAND#20 AND LHAND#22 PATENT, INTACT AND FLUSHING WELL. SAFETY MEASURES IN PLACE WITH BED AT LOW POSITION, SIDE RAILS UP X2. CALL LIGHT IS WITHIN REACH. WILL ENDORSE CONTINUITY OF CARE TO ONCOMING SHIFT.
--- NOTE | 2021-06-12 19:54 | NUR ---
MS RN OPENING NOTE PATIENT IN ROOM; A/OX4; ABLE TO MAKE NEEDS KNOWN. TOLERATING ROOM AIR WELL WITH NO SOB. DENIES PAIN OR DISCOMFORT AT THIS TIME. R HAND #20G S/L; PATENT AND INTACT.LEFT HAND #22 S/L; PATENT AND INTACT. JEVITY 1.2 @ 40ML/HR; TOLERATING FEEDINGS WELL; PEG PATENT AND INTACT. ALL NEEDS MET AT THIS TIME. SAFETY MEASURES IN PLACE: BED IN LOWEST LOCKED POSITION: SIDE RAILS UPX2; AND CALL LIGHT WITHIN EASY REACH. PATIENT IN STABLE CONDITION; WILL CONT PLAN OF CARE.
[2021-06-12 20:00] VITALS: BP 99/55
--- NOTE | 2021-06-12 21:31 | NUR ---
CAFETERIA OPERATOR NOTE - PAIN PT C/O KNEE AND ANKLE PAIN. ADMINISTERED TYLENOL ORDERED. WILL CONTINUE TO REASSESS FOR PAIN IN 30 MINUTES.
[2021-06-13] VITALS: BP 90/56
[2021-06-13] MEDS: IPRATROPIUM NEB FS 0.5 MG/2.5 ML AMPUL.NEB NEB SCH ×4 (03:06→15:30)
[2021-06-13 04:59] VITALS: BP 122/66
[2021-06-13] MEDS: ENOXAPARIN SODIUM 40 MG/0.4 ML DISP.SYRIN SQ SCH (05:33)
[2021-06-13] MEDS: JEVITY 1.2 CAL 1,000 ML BOTTLE PEG PRN (05:50)
[2021-06-13 06:10] LABS: BASOPHILS % (AUTO) 0.3 % (0.0-2.0); HEMATOCRIT 39 % (33-45); HEMOGLOBIN 12.7 g/dL (11.5-14.8); LYMPHOCYTES # (AUTO) 2.3 K/uL (0.8-4.8); LYMPHOCYTES % (AUTO) 19.2 % (20.0-44.0); MEAN CORPUSCULAR HGB CONC 33 g/dl (31.0-36.0); MEAN CORPUSCULAR VOLUME 90 fL (82-100); MONOCYTES # (AUTO) 1.3 K/uL (0.1-1.30); NEUTROPHILS # (AUTO) 8.3 K/uL (1.8-8.9); NEUTROPHILS % (AUTO) 68.5 % (43.0-81.0); PLATELET COUNT (AUTO) 245 K/uL (150-450); RED BLOOD CELL COUNT(AUTO) 4.37 MIL/uL (4.0-5.2); WHITE BLOOD COUNT (AUTO) 12.1 K/uL (4.3-11.0)
[2021-06-13 06:34] LABS: CALCIUM, SERUM 8.9 mg/dL (8.5-10.1); CREATININE 0.8 mg/dL (0.6-1.3); MAGNESIUM 2.3 mg/dL (1.8-2.4); PHOSPHORUS 3.5 mg/dL (2.5-4.9); POTASSIUM 3.8 mmol/L (3.5-5.1)
--- NOTE | 2021-06-13 06:41 | NUR ---
BOND MANAGER CLOSING NOTES PT RESTING IN BED, EASILY AROUSABLE, A/O X4 WITH FORGETFULNESS. DENIES ANY PAIN OR DISCOMFORT. DENIES SOB. IV ACCESS ON RH #20 INTACT/PATENT, FLUSHES WELL. G-TUBE IN PLACE AND PATENT. ON GTF JEVITY 1.2 @40 ML/HR. TOLERATING WELL. NO C/O N/V DURING THE SHIFT. PT IN NO ACUTE DISTRESS. SAFETY MEASURES MAINTAINED, BED IN LOWEST LOCKED POSITION, S/R UP X2, CALL LIGHT AND TABLE WITHIN EASY REACH.
--- NOTE | 2021-06-13 07:34 | NUR ---
CIGAR HEAD PIERCER OPENING NOTES RECEIVED PATIENT ASLEEP IN BED, EASY TO AROUSE. ALERT AND ORIENTED X 4, WITH SHORT MEMORY LOSS. NO SIGNS OR SYMPTOMS OF DISTRESS NOTED. NO SOB. NO COMPLAINTS OF PAIN AT THIS TIME. PATIENT TOLERATING WELL ON ROOM AIR. IV ACCESS RHAND#20 AND LHAND#22 PATENT, INTACT AND FLUSHING WELL. SAFETY MEASURES IN PLACE WITH BED AT LOW POSITION, SIDE RAILS UP X2. CALL LIGHT IS WITHIN REACH. WILL CONTINUE TO MONITOR PATIENT THROUGHOUT SHIFT.
[2021-06-13 08:00] VITALS: BP 101/61
[2021-06-13] MEDS: ENSURE ENLIVE CHOC 237 ML CAN PO SCH ×3 (08:00→17:00)
[2021-06-13] MEDS: POTASSIUM CHLORIDE 20 MEQ TAB.PRT.SR PO SCH (08:18)
[2021-06-13] MEDS: PANTOPRAZOLE 40 MG TABLET.DR PO SCH (08:19)
[2021-06-13] MEDS: SPIRONOLACTONE 25 MG TABLET PO SCH (08:19)
[2021-06-13] MEDS: LEVOTHYROXINE SODIUM 75 MCG TABLET PO SCH (08:19)
[2021-06-13] MEDS: AMIODARONE HCL 200 MG TABLET PO SCH (08:19)
[2021-06-13] MEDS: CARVEDILOL 3.125 MG TABLET PO SCH ×2 (08:21→17:00)
[2021-06-13 11:59] VITALS: BP 103/57
[2021-06-13 16:00] VITALS: BP 104/68
[2021-06-13] MEDS: LOSARTAN POTASSIUM 25 MG TABLET PO SCH (17:19)
--- NOTE | 2021-06-13 18:53 | NUR ---
FLOOR PRESS OPERATORCADWORX PIPING DESIGNER NOTES RECEIVED ORDER FOR DISCHARGE. PATIENT WAS DISCHARGED WITH STABLE VITAL SIGNS. PATIENT IS ALERT AND ORIENTED X 4 WITH FORGETFULNESS. NO SOB. BREATHING IS EVEN AND UNLABORED. DISCHARGE INSTRUCTIONS REVIEWED WITH PATIENT AND SIGNED, VERBALIZED UNDERSTANDING. REPORT GIVEN TO REINIER AT [facility]. IV ACCESS REMOVED AND ID BAND REMOVED.
== END 2021-06-13 19:30 | DRG 306 ==
LOC: ER 22:20 → TRANSITION 06-10 06:38 → TELE 06-10 21:35 → MED 06-13 08:47
PROVIDERS: ADMIT Internal Medicine; ATTEND Hospitalist
DX: I34.0 Nonrheumatic mitral (valve) insufficiency (principal); J96.20 Acute and chronic respiratory failure, unspecified whether with hypoxia or hypercapnia; I50.23 Acute on chronic systolic (congestive) heart failure; E43 Unspecified severe protein-calorie malnutrition; E87.3 Alkalosis; R64 Cachexia; Z68.1 Body mass index [BMI] 19.9 or less, adult; E03.9 Hypothyroidism, unspecified; J44.9 Chronic obstructive pulmonary disease, unspecified; Z20.822 Contact with and (suspected) exposure to COVID-19; R13.10 Dysphagia, unspecified; I25.10 Atherosclerotic heart disease of native coronary artery without angina pectoris; Z95.1 Presence of aortocoronary bypass graft; Z86.16 Personal history of COVID-19; Z93.1 Gastrostomy status; Z98.82 Breast implant status; Z90.49 Acquired absence of other specified parts of digestive tract; Z98.890 Other specified postprocedural states; Z79.51 Long term (current) use of inhaled steroids; Z79.899 Other long term (current) drug therapy; D72.829 Elevated white blood cell count, unspecified; F41.9 Anxiety disorder, unspecified; Z99.81 Dependence on supplemental oxygen; M06.9 Rheumatoid arthritis, unspecified; Z95.810 Presence of automatic (implantable) cardiac defibrillator; F32.9 Major depressive disorder, single episode, unspecified; E87.6 Hypokalemia; T50.2X5A Adverse effect of carbonic-anhydrase inhibitors, benzothiadiazides and other diuretics, initial encounter; Y92.009 Unspecified place in unspecified non-institutional (private) residence as the place of occurrence of the external cause
CPT/HCPCS: 36415; 71045-TC; 80048-TC; 80053-TC; 80061-TC; 80076-TC; 83735-TC; 83880; 84100-TC; 84484-TC; 85025-TC; 85730-TC; 87040-TC; 87081-TC; 94762-TC; 94799-TC; C9803; G0378; J1650; J1940; J3490; J7040

== ENCOUNTER 2021-07-28 12:30 | Emergency (ER) | payer MEDICARE, OTHER ==
[~2021-07-28] VITALS: Ht 152.4 cm; Wt 41.3 kg
[~2021-07-28 12:30] MED LIST changes: -AZIT250T13 PO; -Prosource PO; -methylPREDNISolone SOD SUCC IV
--- NOTE | 2021-07-28 12:51 | NUR ---
to ER 02; awaiting for ER provider to assess the patient
[2021-07-28] MEDS ORDERED: NITR0.4T48 SL (13:05)
[2021-07-28] MEDS ORDERED: FURO-145 PO (13:05)
[2021-07-28 15:36] VITALS: BP 114/62
== END 2021-07-28 15:36 | disposition home or self-care (01) ==
LOC: ER 12:45
DX: K94.23 Gastrostomy malfunction (principal); E03.9 Hypothyroidism, unspecified; Z98.82 Breast implant status; Z90.89 Acquired absence of other organs; Z98.890 Other specified postprocedural states; Z79.899 Other long term (current) drug therapy